=== PATIENT | female | born 1965 | race Caucasian/White ===

== ENCOUNTER 2018-05-24 10:47 | Emergency (ER) | payer OTHER ==
[~2018-05-24] VITALS: Ht 154.9 cm; Wt 105.2 kg
[~2018-05-24 10:47] MED LIST: CAMBIA50 MG PO; FERROUS SULFAT325 MG PO; HYDROCHLOROTH12.5 MG PO; LISINOPRIL10 MG PO; PANTOPRAZOLE SO40 MG PO; RELPAX40 MG PO; TOPIRAMATE100 MG PO; TRAZODONE HCL50 MG PO; VITAMIN D PO
[2018-05-24] MEDS ORDERED: HYDROCODONE/APAP 5MG-325MG TAB PO ONE (11:30)
--- NOTE | 2018-05-24 12:05 | Diagnostic Imaging Report ---
FOOT LEFT COMPLETE - 3 views HISTORY: Pain. Pain along the fifth metatarsal for 1.5 days. Evaluate for possible fracture. No history of trauma. COMPARISON: None available. FINDINGS: Bones: No acute displaced fracture. Osseous alignment is within normal limits. Plantar calcaneal enthesophytes. Joints: The joint spaces are well-maintained. Soft tissues: Soft tissue swelling in the left foot especially around the left fifth metatarsal. IMPRESSION: 1. No acute osseous abnormality. 2. Soft tissue swelling around the left foot. Signed by: Dr. Rhys Garcia M.D. on 05/24/2018 12:01 PM
[2018-05-24] MEDS ORDERED: KETOROLAC TROMETHAMINE 60 MG/2 ML VIAL IM ONE (13:30)
[2018-05-24 14:26] VITALS: BP 129/82
== END 2018-05-24 13:34 | disposition home or self-care (01) ==
LOC: ER 10:47
DX: M79.672 Pain in left foot (principal); S90.32XA Contusion of left foot, initial encounter; Y92.008 Other place in unspecified non-institutional (private) residence as the place of occurrence of the external cause; I10 Essential (primary) hypertension
CPT/HCPCS: 73630; 99283; J1885